=== PATIENT | female | born 1960 | race Caucasian/White ===

== ENCOUNTER 2017-05-31 19:47 | Emergency (ER) | payer BC, OTHER ==
[~2017-05-31] VITALS: Ht 170.2 cm; Wt 83.9 kg
[2017-05-31] MEDS ORDERED: SYNTHROID100 MCG PO (21:14)
[2017-05-31] MEDS ORDERED: PROTONIX 20 MG20 M1 PO (21:14)
[2017-05-31] MEDS ORDERED: PROZAC20 MG PO (21:14)
[2017-05-31] MEDS ORDERED: WELLBUTRIN SR150 MG PO (21:15)
[2017-05-31] MEDS ORDERED: ABILIFY 2 MG2 M1 PO (21:16)
[2017-05-31] MEDS ORDERED: ZANAFLEX2 M1 PO (21:16)
[2017-05-31 22:55] VITALS: BP 144/87
== END 2017-05-31 22:57 | disposition home or self-care (01) ==
LOC: ER 19:47
DX: S00.531A Contusion of lip, initial encounter (principal); S90.32XA Contusion of left foot, initial encounter; F32.9 Major depressive disorder, single episode, unspecified; F41.9 Anxiety disorder, unspecified; F17.210 Nicotine dependence, cigarettes, uncomplicated; W18.2XXA Fall in (into) shower or empty bathtub, initial encounter; Y93.89 Activity, other specified; Y92.89 Other specified places as the place of occurrence of the external cause; Y99.8 Other external cause status